=== PATIENT | male | born 1990 | race African-American/Black ===

== ENCOUNTER 2016-09-18 23:51 | Emergency (ER) | payer SELFPAY ==
[2016-09-19] MEDS ORDERED: IBUPROFEN 600 MG TABLET PO ONE (01:33)
[2016-09-19] MEDS ORDERED: HYDROCODONE/ACETAMINOPHEN 5-325 MG 6 TAB/DSPK PO PRN (01:33)
--- NOTE | 2016-09-19 01:37 | ER Document Report ---
ED General - General Chief Complaint: Hand Injury Stated Complaint: HAND INJURY Notes: Patient is a 26-year-old male without past medical history who presents after he punched a wall. Patient states that he was playing a video game with friends and after he won the game became very excited and punched a wall in celebration. States he immediately developed a severe, constant, throbbing pain to the ulnar, dorsal aspect of his right hand. He has not tried anything to improve the pain. Touching the area or movement worsens the pain. No history of similar injury in the past. He is right-hand dominant. Denies any additional injuries. TRAVEL OUTSIDE OF THE [place] IN LAST 30 DAYS: No - Related Data Allergies/Adverse Reactions: Penicillins Allergy (Severe, Verified 08/21/13 03:30) benzonatate [From Tessalon Perles] Allergy (Verified 08/21/13 03:30) Past Medical History - General Information source: Patient - Social History Smoking Status: Never Smoker Frequency of alcohol use: Occasional Drug Abuse: None Lives with: Friend Family History: Reviewed & Not Pertinent Patient has suicidal ideation: No Patient has homicidal ideation: No Renal/ Medical History: Denies: Hx Peritoneal Dialysis Past Surgical History: Reports: Hx Abdominal Surgery - Immunizations Immunizations up to date: Yes Hx Diphtheria, Pertussis, Tetanus Vaccination: Yes Review of Systems - Review of Systems Notes: Constitutional: Negative for fever. Eyes: Negative for visual changes. ENT: Negative for facial injury Cardiovascular: Negative for chest injury. Respiratory: Negative for shortness of breath. Gastrointestinal: Negative for abdominal injury. Genitourinary: Negative for genital injury Musculoskeletal: Positive for right hand injury Skin: Negative for laceration/abrasions. Neurological: Negative for head injury. Physical Exam - Vital signs Vitals: Temp Pulse Resp BP Pulse Ox 98.7 F 102 H 20 136/72 H 95 09/18/16 23:58 09/18/16 23:58 09/18/16 23:58 09/18/16 23:58 09/18/16 23:58 Interpretation: Normal Notes: PHYSICAL EXAMINATION: GENERAL: Well-appearing, well-nourished and in no acute distress. HEAD: Atraumatic, normocephalic. EYES: sclera anicteric, conjunctiva are normal. ENT: Moist mucous membranes. NECK: Normal range of motion LUNGS: Normal work of breathing HEART: 2+ radial pulses bilaterally EXTREMITIES: Swelling over the entirety of the dorsal aspect of the right hand. Severe pain on palpation of the fourth and fifth metacarpals. AIN, PIN, IO intact. RMU sensory distribution intact. NEUROLOGICAL: No focal neurological deficits. Moves all extremities spontaneously and on command. PSYCH: Normal mood, normal affect. SKIN: Warm, Dry, normal turgor, no rashes or lesions noted. Course - Re-evaluation Re-evalutation: 09/19/16 01:38 Patient presents after he punched a wall. He plans of a severe pain to his right hand and his x-ray does demonstrate a fourth metacarpal fracture. No displacement. He is in place in an ulnar gutter splint and will be followed by orthopedic surgery. He has no neurologic or vascular deficit on exam.At this time will discharge with return precautions and follow-up recommendations. Verbal discharge instructions given a the bedside and opportunity for questions given. Medication warnings reviewed. Patient is in agreement with this plan and has verbalized understanding of return precautions and the need for primary care follow-up in the next 24-72 hours. - Vital Signs Vital signs: Temp Pulse Resp BP Pulse Ox 97.4 F 79 17 113/67 96 09/19/16 01:39 09/19/16 01:39 09/19/16 01:39 09/19/16 01:39 09/19/16 01:39 - Diagnostic Test Radiology reviewed: Image reviewed, Reports reviewed Radiology results interpreted by me: 09/19/16 02:34 Right hand x-ray: Fourth metacarpal fracture Procedures - Immobilization Right Hand Time completed: 01:45 Pre-Proc Neuro Vasc Exam: Normal Immobilizer type: Ulnar Performed by: Provider assisted Post-Proc Neuro Vasc Exam: Normal Alignment checked and good: Yes Discharge - Discharge Clinical Impression: Fracture of fourth metacarpal bone Qualifiers: Encounter type: initial encounter Fracture type: closed Metacarpal location: shaft Fracture alignment: nondisplaced Laterality: right Qualified Code(s): S62.354A - Nondisplaced fracture of shaft of fourth metacarpal bone, right hand , initial encounter for closed fracture Condition: Good Disposition: HOME, SELF-CARE Additional Instructions: You have a fourth metacarpal fracture in your right hand. You have been placed in a splint and will need to wear this until you follow-up with orthopedic surgery. In general this type of fracture does not require surgery but you still need to follow-up with the orthopedist to be sure that you do not need any further management beyond a splint. Please contact the office for an appointment within the next 1 week. Return if you develop persistent weakness, numbness, increasing pain, or any other symptoms that are worrisome to you. Don 't punched perry. Take ibuprofen 600 mg every 6 hours as needed for pain. Take the [place] that you were prescribed as needed for pain that is not controlled by ibuprofen. Prescriptions: Hydrocodone/Acetaminophen [[place] 5-325 mg Tablet] 1 tab PO Q4HP PRN #20 tablet PRN Reason: Referrals: HOLLY EUBANKS DO [ACTIVE STAFF] - Follow up in 1 week
[2016-09-19 02:11] VITALS: BP 113/67
== END 2016-09-19 01:39 | disposition home or self-care (01) ==
LOC: ER 23:51
PROC: 2W3CX1Z Immobilization of Right Lower Arm using Splint (ICD-10-PCS; principal; 2016-09-18)
DX: S62.354A Nondisplaced fracture of shaft of fourth metacarpal bone, right hand, initial encounter for closed fracture (principal); W22.01XA Walked into wall, initial encounter
CPT/HCPCS: 99283

== ENCOUNTER 2016-12-20 17:23 | Emergency (ER) | payer SELFPAY ==
[2016-12-20 17:40] VITALS: BP 136/89
[2016-12-20] MEDS ORDERED: OXYCODONE-ACETAMINOPHEN 5-325 MG TABLET PO ONE (17:55)
[2016-12-20] MEDS ORDERED: MUPIROCIN 2% OINTMENT 22 GM TP ONE (18:03)
--- NOTE | 2016-12-20 18:11 | ER Document Report ---
HPI - HPI Patient complains to provider of: rash Onset: Last week Onset/Duration: Gradual Quality of pain: Burning Severity: Severe Pain Level: 5 Context: Patient started with area to posterior right calf about 1 week ago. Has now spread, has blisters that are oozing behind right knee and posterior thigh. Several similar lesions noted to forearms. Patient denies contact with any known substance or plant that may have caused this rash. Associated Symptoms: None Exacerbated by: Walking Relieved by: Denies Similar symptoms previously: No Recently seen / treated by doctor: No - ROS ROS below otherwise negative: Yes Systems Reviewed and Negative: Yes All other systems reviewed and negative - CONSTITUTIONAL Constitutional: DENIES: Fever - EENT EENT: DENIES: Congestion - NEURO Neurology: DENIES: Headache - CARDIOVASCULAR Cardiovascular: DENIES: Chest pain - RESPIRATORY Respiratory: DENIES: Trouble Breathing - GASTROINTESTINAL Gastrointestinal: DENIES: Abdominal Pain - MUSCULOSKELETAL Musculoskeletal: REPORTS: Extremity pain - Posterior right leg where rash - DERM Skin Color: Erythema Skin Problems: Blister Past Medical History - General Information source: Patient - Social History Smoking Status: Current Every Day Smoker Cigarette use (# per day): Yes Frequency of alcohol use: Occasional Drug Abuse: None Lives with: Spouse/Significant other Family History: Reviewed & Not Pertinent Patient has suicidal ideation: No Patient has homicidal ideation: No - Medical History Medical History: Negative Past Surgical History: Reports: Hx Abdominal Surgery - Immunizations Immunizations up to date: Yes Hx Diphtheria, Pertussis, Tetanus Vaccination: Yes Vertical Provider Document - CONSTITUTIONAL Agree With Documented VS: Yes Exam Limitations: No Limitations General Appearance: WD/WN, No Apparent Distress - INFECTION CONTROL TRAVEL OUTSIDE OF THE [place] IN LAST 30 DAYS: No - HEENT HEENT: Atraumatic, Normocephalic - RESPIRATORY Respiratory: Breath Sounds Normal, No Respiratory Distress O2 Sat by Pulse Oximetry: 96 - CARDIOVASCULAR Cardiovascular: Regular Rate, Regular Rhythm - MUSCULOSKELETAL/EXTREMETIES Musculoskeletal/Extremeties: MAEW, No Edema - NEURO Level of Consciousness: Awake, Alert, Appropriate - DERM Integumentary: Warm, Dry, Rash - Beefy red vesicular rash noted to right posterior thigh knee and calf. Areas are oozing at this time. Small papules noted to both forearms. Course - Vital Signs Vital signs: Temp Pulse Resp BP Pulse Ox 98.5 F 89 16 136/89 H 96 12/20/16 17:37 12/20/16 17:37 12/20/16 17:37 12/20/16 17:37 12/20/16 17:37 Discharge - Discharge Clinical Impression: Rash Condition: Good Disposition: HOME, SELF-CARE Additional Instructions: Antibiotics as instructed warm compresses Areas clean and dry, apply small amount of Bactroban 3 times a day. Tylenol or Motrin for pain Follow-up with your doctor for recheck in 3-4 days Return as needed. Prescriptions: Clindamycin HCl 300 mg PO QID #28 capsule Oxycodone HCl/Acetaminophen [Percocet 5-325 mg Tablet] 1 - 2 tab PO ASDIR PRN # 15 tablet PRN Reason: Forms: Return to Work
[2016-12-20] MEDS ORDERED: LIDOCAINE 1% INJ-PF (10 MG/ML) 30 ML SDV INJ ONE (18:14)
[2016-12-20] MEDS ORDERED: CEFTRIAXONE INJ 1000 MG VIAL IM ONE (18:14)
== END 2016-12-20 18:50 | disposition home or self-care (01) ==
LOC: ER 17:23
DX: S70.321A Blister (nonthermal), right thigh, initial encounter (principal); S80.221A Blister (nonthermal), right knee, initial encounter; S50.822A Blister (nonthermal) of left forearm, initial encounter; S50.821A Blister (nonthermal) of right forearm, initial encounter; R21 Rash and other nonspecific skin eruption; X58.XXXA Exposure to other specified factors, initial encounter; F17.210 Nicotine dependence, cigarettes, uncomplicated
CPT/HCPCS: 99282; 96372; 87070; 87205; 87077; 87186; J3490 ×2; J0696

== ENCOUNTER 2016-12-24 15:19 | Emergency (ER) | payer SELFPAY ==
[2016-12-24] MEDS ORDERED: CLINDAMYCIN HCL 150 MG CAPSULE PO ONE (16:00)
[2016-12-24] MEDS ORDERED: OXYCODONE-ACETAMINOPHEN 5-325 MG TABLET PO ONE ×2 (16:00→16:23)
[2016-12-24] MEDS ORDERED: SULFAMETHOXAZOLE/TRIMETHOPRIM 800-160 MG TABLET PO ONE (16:00)
[2016-12-24] MEDS ORDERED: ONDANSETRON 4 MG TAB.RAPDIS PO ONE (16:01)
--- NOTE | 2016-12-24 16:15 | ER Document Report ---
ED Extremity Problem, Lower - General Chief Complaint: Leg Pain Stated Complaint: RIGHT LEG PAIN/RASH Time Seen by Provider: 12/24/16 15:52 Notes: 26 yo healthy male presents to ED c/o painful rash to posterior right leg x 5 days. unknown cause. noted what he thought was a bug bite to right calf prior to rash developing. pt was seen in ED 4 days ago for same. has been taking Clindaymcin but pain, redness and swelling to leg have gradually increased. pt denies fever, n/v. feels otherwise fine. no hx/o DM or similar rash TRAVEL OUTSIDE OF THE [place] IN LAST 30 DAYS: No - HPI Location: Leg - right posterior Quality of pain: Burning, Throbbing, Other - itching Associated symptoms: Painful ambulation. denies: Chills, Fever, Hurts to breath , Short of breath Exacerbated by: Movement, Walking Relieved by: Nothing - Related Data Allergies/Adverse Reactions: Penicillins Allergy (Severe, Verified 12/24/16 15:29) benzonatate [From Tessalon Perles] Allergy (Verified 12/24/16 15:29) Past Medical History - General Information source: Patient - Social History Smoking Status: Never Smoker Frequency of alcohol use: None Drug Abuse: None Lives with: Family Family History: Reviewed & Not Pertinent - Medical History Medical History: Negative Renal/ Medical History: Denies: Hx Peritoneal Dialysis Past Surgical History: Reports: Hx Abdominal Surgery - Immunizations Immunizations up to date: Yes Hx Diphtheria, Pertussis, Tetanus Vaccination: Yes Physical Exam - Vital signs Vitals: Temp Pulse Resp BP Pulse Ox 98.5 F 94 16 130/80 H 97 12/24/16 15:30 12/24/16 15:30 12/24/16 15:30 12/24/16 15:30 12/24/16 15:30 Interpretation: Normal - General General appearance: Appears well, Alert - HEENT Head: Normocephalic, Atraumatic Eyes: Normal Pupils: PERRL - Respiratory Respiratory status: No respiratory distress Chest status: Nontender Breath sounds: Normal Chest palpation: Normal - Cardiovascular Rhythm: Regular Heart sounds: Normal auscultation Murmur: No - Abdominal Inspection: Normal Distension: No distension Bowel sounds: Normal Tenderness: Nontender Organomegaly: No organomegaly - Back Back: Normal, Nontender - Extremities General upper extremity: Normal inspection, Nontender, Normal color, Normal ROM , Normal temperature General lower extremity: Tender, Edema - generalized nonpitting edema to right leg., Normal temperature - Neurological Neuro grossly intact: Yes Cognition: Normal Orientation: AAOx4 [place] Coma Scale Eye Opening: Spontaneous Nadir Coma Scale Verbal: Oriented Nadir Coma Scale Motor: Obeys Commands Nadir Coma Scale Total: 15 Speech: Normal Motor strength normal: LUE, RUE, LLE, RLE Sensory: Normal - Psychological Associated symptoms: Normal affect, Normal mood - Skin Skin Temperature: Warm Skin Moisture: Dry Character of irregularity: Erythematous - sharply demarcated erythematous vesicular rash to posterior right thigh, popliteal area and proximal calf. + oozing, + fissuring. Course - Re-evaluation Re-evalutation: 12/24/16 16:[address] Ross. Recommends ultrasound of leg to r/o deeper infection. pt is nontoxic appearing, afebrile with no hx/o DM or other comorbitity, therefore he does not recommned lab work. Recommends oral Bactrim and Doxy antibacterial coverage. Discussed plan with patient. 12/24/16 17:30 US showing diffuse subq edema without abscess. results discussed with Dr Ross. pt is afebrile, nontoxic and stable for discharge with above oral antibiotic. results and plan discussed with patient. agreeable with plan. - Vital Signs Vital signs: Temp Pulse Resp BP Pulse Ox 98.5 F 94 16 130/80 H 97 12/24/16 15:30 12/24/16 15:30 12/24/16 15:30 12/24/16 15:30 12/24/16 15:30 Discharge - Discharge Clinical Impression: Rash, Cellulitis of leg without foot Condition: Stable Disposition: HOME, SELF-CARE Instructions: Cellulitis ([facility]), Antibiotic Therapy ([facility]), Oral Narcotic Medication ([facility]) Additional Instructions: Take medications as prescribed Followup primary care for any worsening Return to ER for worsening, fever Prescriptions: Doxycycline Hyclate [Vibramycin] 100 mg PO BID #20 capsule Oxycodone HCl/Acetaminophen [Percocet 5-325 mg Tablet] 1 - 2 tab PO ASDIR PRN # 25 tablet PRN Reason: Sulfamethoxazole/Trimethoprim [Bactrim Ds Tablet] 1 each PO BID #20 tablet
--- NOTE | 2016-12-24 17:12 | RADIOLOGY REPORT (SQ) ---
EXAM DESCRIPTION: U/S EXTREMITY NONVASCULAR COMP COMPLETED DATE/TIME: 12/24/2016 4:59 pm REASON FOR STUDY: swelling to right leg COMPARISON: None. TECHNIQUE: Dynamic and static grayscale images acquired of the localized site of clinical concern an d recorded on PACS. Additional selected color Doppler and spectral images recorded. SITE OF CONCERN: Right lower extremity superficial soft tissues (mid thigh to mid calf). LIMITATIONS: None. FINDINGS: SKIN AND SUBCUTANEOUS TISSUES: Diffuse subcutaneous edema without focal fluid collection. No mass. DEEP SOFT TISSUES/MUSCLES: No masses. No fluid collections. No edema. VASCULAR: No increased or decreased vascularity. No occlusions. OTHER: No other significant finding. IMPRESSION: Diffuse subcutaneous edema without focal fluid collection/abscess. TECHNICAL DOCUMENTATION: JOB ID: [id number]- All Rights Reserved
[2016-12-24 18:48] VITALS: BP 127/66
== END 2016-12-24 17:40 | disposition home or self-care (01) ==
LOC: ER 15:19
DX: L03.115 Cellulitis of right lower limb (principal); M79.604 Pain in right leg; R21 Rash and other nonspecific skin eruption; M79.89 Other specified soft tissue disorders
CPT/HCPCS: 99284; 76881; S0119

== ENCOUNTER 2017-11-15 07:11 | Emergency (ER) | payer SELFPAY ==
[2017-11-15 07:19] VITALS: BP 133/85
[2017-11-15] MEDS ORDERED: TETRACAINE HCL 0.5% OPH SOLN 2 ML OD ONE (07:31)
--- NOTE | 2017-11-15 07:32 | ER Document Report ---
ED Eye Complaint - General Chief Complaint: Eye Problem Stated Complaint: RIGHT EYE PAIN Time Seen by Provider: 11/15/17 07:16 Notes: 27-year-old male to the emergency department chief complaint of right eye pain. Patient states he was working on his car. Thinks when he was leaning over to put some anti-freeze in the radiator that the radiator fan broke loose a little piece of dirt. [place] it hit his eye. Patient is 100% sure it was not liquid. States there was no hot liquid to hit his face but felt a piece of sand or gravel hit him. Has this happen once before and was diagnosed with a corneal abrasion. Patient having pain in the right eye. No fever, chills, sweats. No other medical problems at this time. TRAVEL OUTSIDE OF THE [place] IN LAST 30 DAYS: No - HPI Onset: Just prior to arrival - Related Data Allergies/Adverse Reactions: Penicillins Allergy (Severe, Verified 11/15/17 07:13) benzonatate [From Tessalon Perles] Allergy (Verified 11/15/17 07:13) Past Medical History - General Information source: Patient - Social History Smoking Status: Current Every Day Smoker Frequency of alcohol use: None Drug Abuse: None Lives with: Family Family History: Reviewed & Not Pertinent Renal/ Medical History: Denies: Hx Peritoneal Dialysis Past Surgical History: Reports: Hx Abdominal Surgery - Immunizations Immunizations up to date: Yes Hx Diphtheria, Pertussis, Tetanus Vaccination: Yes Review of Systems - Review of Systems Constitutional: denies: Fever, Malaise, Weakness EENT: Eye pain, Tearing. denies: Eye discharge, Blurred vision, Double vision Cardiovascular: denies: Chest pain, Palpitations, Heart racing Respiratory: denies: Cough, Hurts to breathe, Short of breath, Wheezing Skin: No symptoms reported Neurological/Psychological: No symptoms reported Physical Exam - Vital signs Vitals: Temp Pulse Resp BP Pulse Ox 98.2 F 74 14 133/85 H 97 11/15/17 07:17 11/15/17 07:17 11/15/17 07:17 11/15/17 07:17 11/15/17 07:17 Interpretation: Normal - General General appearance: Appears well, Alert - HEENT Head: Normocephalic, Atraumatic Eyes: Normal Cornea: Corneal abrasion, Flourescein stain uptake, Other - There is positive fluorescein uptake at the 7 o'clock position of the right iris of the right eye. No obvious foreign body seen.. No: Embedded foreign body, Superficial foreign body Pupils: PERRL - Respiratory Respiratory status: No respiratory distress Chest status: Nontender Breath sounds: Normal Chest palpation: Normal - Cardiovascular Rhythm: Regular Heart sounds: Normal auscultation Murmur: No - Extremities General upper extremity: Normal inspection, Nontender, Normal color, Normal ROM , Normal temperature General lower extremity: Normal inspection, Nontender, Normal color, Normal ROM , Normal temperature, Normal weight bearing. No: Mana's sign - Skin Skin Temperature: Warm Skin Moisture: Dry Skin Color: Normal Course - Re-evaluation Re-evalutation: 11/15/17 14:36 Evaluation was performed with magnifying glass and ophthalmoscope. Evaluated with blue lamp as well as with regular light. I did not see any foreign bodies. Tetracaine was applied until patient's eye was adequately anesthetized. Fluorescein paper strip placed denied. Positive fluorescein uptake with a rather large area of corneal abrasion. Erythromycin ophthalmic ointment was placed, ibuprofen, Phenergan, Percocet given. Advise close follow- up with optometry. Will DC at this time. - Vital Signs Vital signs: Temp Pulse Resp BP Pulse Ox 98.2 F 74 14 133/85 H 97 11/15/17 07:17 11/15/17 07:17 11/15/17 07:17 11/15/17 07:17 11/15/17 07:17 Discharge - Discharge Clinical Impression: Corneal abrasion Qualifiers: Encounter type: initial encounter Laterality: right Qualified Code(s): S05.01XA - Injury of conjunctiva and corneal abrasion without foreign body, right eye, initial encounter Condition: Good Disposition: HOME, SELF-CARE Instructions: Corneal Abrasion ([facility]), Eyedrop Use ([facility]) Additional Instructions: Please follow-up with an hairspring staker or quick service technician for repeat evaluation in 24-36 hours especially if symptoms are getting worse. Take medication as prescribed. No driving today. Avoid direct sunlight. Return for any further issues or concerns. Prescriptions: Erythromycin Base [Erythromycin Oph 1 Gm Oint Ud] 1 applic OD QID 7 Days #1 tube Ibuprofen [Motrin 800 mg Tablet] 800 mg PO Q8H PRN 10 Days #30 tab PRN Reason: For Pain Scale 3-4 Oxycodone HCl/Acetaminophen [Percocet 5-325 mg Tablet] 1 tab PO Q6H PRN 5 Days # 15 tablet PRN Reason: For Pain Scale 2-3 Promethazine HCl [Phenergan 25 mg Tablet] 1 tab PO Q6H PRN #15 tablet PRN Reason:
[2017-11-15] MEDS ORDERED: PROMETHAZINE HCL 25 MG TABLET PO ONE (07:53)
[2017-11-15] MEDS ORDERED: IBUPROFEN 800 MG TABLET PO ONE (07:53)
[2017-11-15] MEDS ORDERED: OXYCODONE-ACETAMINOPHEN 5-325 MG TABLET PO ONE (07:53)
[2017-11-15] MEDS ORDERED: ERYTHROMYCIN 0.5% OPH OINTMENT 3.5 GM (ER DISP) OD PRN (07:54)
== END 2017-11-15 08:15 | disposition home or self-care (01) ==
LOC: ER 07:11
DX: S05.01XA Injury of conjunctiva and corneal abrasion without foreign body, right eye, initial encounter (principal); H57.11 Ocular pain, right eye; W22.8XXA Striking against or struck by other objects, initial encounter; Y93.89 Activity, other specified; F17.200 Nicotine dependence, unspecified, uncomplicated; Z88.0 Allergy status to penicillin; Z88.8 Allergy status to other drugs, medicaments and biological substances
CPT/HCPCS: 99283